=== PATIENT | female | born 1965 | race Caucasian/White ===

== ENCOUNTER 2019-04-10 12:43 | Emergency (ER) | payer OTHER, MEDICAID, SELFPAY ==
[2019-04-10 12:51] VITALS: BP 123/74; PULSE 79; RESP 16; TEMP 36.5; O2SAT 97; BMI 45.1
--- NOTE | 2019-04-10 13:01 | DI.RAD.S_ITS ---
PROCEDURE: XR CHEST 1V INDICATIONS: chest pain TECHNIQUE: One view of the chest was acquired. COMPARISON: [facility], , CHEST 2 VIEW, 01/12/2016, 22:17. FINDINGS: Surgical changes and devices: None. Lungs and pleura: Lungs are clear. No pleural effusions or pneumothorax. Mediastinum: Mediastinal contours appear normal. Heart size is mildly enlarged. Bones and chest wall: No suspicious bony lesions. Overlying soft tissues appear unremarkable. IMPRESSION: Mild cardiomegaly. No acute pulmonary findings. Dictated by: Ramya Chadwick M.D. on 04/10/2019 at 14:17 Approved by: Ramya Chadwick M.D. on 04/10/2019 at 14:18
[2019-04-10 13:19] VITALS: BP 103/78; PULSE 80; RESP 16; O2SAT 100
[2019-04-10 13:20] LABS: Add Manual Diff / Slide Review NO; Basophils Absolute Auto 0 /uL (0-100); Basophils Percent Auto 0.8 % (0-2); Eosinophils Absolute Auto 100 /uL (0-450); Hematocrit 40.5 % (36-46); Hemoglobin 13.7 g/dL (12.0-16.0); Lymphocytes Absolute Auto 1800 /uL (1100-4500); Lymphocytes Percent Auto 34.9 % (25-40); Mean Corpuscular HGB Conc 33.8 % (30-36); Mean Corpuscular Hemoglobin 31.8 PG (26-34); Monocytes Absolute Auto 400 /uL (0-900); Monocytes Percent Auto 6.8 % (3-14); Neutrophils Absolute Auto 2900 /uL (1500-7000); Neutrophils Percent Auto 55.5 % (50-75); Platelet Count 205 X10^3/uL (150-400); Red Blood Cell Count 4.31 X10^6/uL (4.0-5.2); Red Cell Distribution Width 13.3 % (11.6-14.8); White Blood Cell Count 5.2 X10^3/uL (4.5-11.0)
[2019-04-10 13:21] LABS: Prothrombin Time 11.3 SECONDS (10.1-12.7)
[2019-04-10 13:24] LABS: PTT Partial Thromboplastin Tim 32 SECONDS (26.4-36.2)
[2019-04-10 13:26] LABS: Alanine Aminotransferase 16 IU/L (<35); Albumin 4.2 g/dL (3.5-5.0); Albumin Globulin Ratio 1.5 (1.0-2.8); Alkaline Phosphatase 71 U/L (38-126); Aspartate Aminotransferase 27 IU/L (14-36); BUN Creatinine Ratio 38.3 (6-22); Bilirubin Total 0.4 mg/dL (0.2-1.3); Blood Urea Nitrogen 23 mg/dL (7-17); Calcium 9.4 mg/dL (8.4-10.2); Carbon Dioxide 28 mmol/L (22-32); Chloride 108 mmol/L (98-107); Creatine Kinase 232 U/L (30-135); Estimated Glomerular Filt Rate > 60.0 mL/min (>60); Globulin 2.8 g/dL (1.7-4.1); Glucose 111 mg/dL (70-100); HEMOLYSIS < 15 (0-50); Lipase 72 U/L (23-300); Potassium 3.8 mmol/L (3.4-5.1); Sodium 143 mmol/L (137-145)
--- NOTE | 2019-04-10 13:31 | ED.CHESTPAIN ---
HPI - Chest Pain General Chief Complaint: Chest Pain Stated Complaint: Chest pain and pressure Time Seen by Provider: 04/10/19 13:29 Source: patient Mode of arrival: Wheelchair Limitations: no limitations History of Present Illness HPI narrative: Patient is a 54-year-old overweight female with history of fibromyalgia and COPD presenting with sudden onset left-sided chest pain. It radiates to her left shoulder it has let up only little bit since she has been in the emergency department. She feels like there is a knot on the top of her chest. It is almost reproducible but she says feels deep. She move her left arm without any difficulty she denies any pain will breathing. She has never experienced anything like this in the past. She does typically get around by a walker Related Data Home Medications Medication Instructions Recorded Confirmed albuterol sulfate [Proventil HFA] 2 puff INH PRN #8.5 gm 12/25/12 beclomethasone dipropionate [Qvar] 1 puff INH BID #1 inh 12/25/12 LIDOCAINE (LIDODERM) 1 ea TOPICAL QDAY #0 patch 01/12/16 budesonide-formoterol [Symbicort] 1 inh INH BID #1 inh 01/12/16 cyclobenzaprine 5 mg PO QDAY PRN #0 01/12/16 hydrocodone-acetaminophen [Vicodin] 1 tab PO Q4HP PRN #0 tab 01/12/16 ketoconazole 1 jackie TOPICAL #15 gm 01/12/16 methenamine-sodium salicylate 1 tab PO #0 tab 01/12/16 [Cystex Plus (methenamine-cash)] nystatin [Nyamyc] 100,000 u TP #15 gm 01/12/16 ondansetron HCl [Zofran] 8 mg PO TID PRN #0 01/12/16 sucralfate [Carafate] 1 gm PO ACHS #0 ml 01/12/16 Previous Rx's Medication Instructions Recorded hydrochlorothiazide 25 mg PO QDAY PRN #30 tab 01/12/16 Allergies Allergy/AdvReac Type Severity Reaction Status Date / Time acetaminophen [From PERCOCET] Allergy Unknown Unverified 08/19/17 12:09 ciprofloxacin [CIPROFLOXACIN] Allergy Unknown Unverified 08/19/17 12:09 clindamycin [CLINDAMYCIN] Allergy Unknown Unverified 08/19/17 12:09 dexamethasone [DEXAMETHASONE] Allergy Unknown Unverified 08/19/17 12:09 diphenhydramine Allergy Unknown Unverified 08/19/17 12:09 [DIPHENHYDRAMINE] erythromycin base Allergy Unknown Unverified 08/19/17 12:09 [ERYTHROMYCIN BASE] fluticasone [From FLONASE] Allergy Unknown Unverified 08/19/17 12:09 gabapentin [GABAPENTIN] Allergy Unknown Unverified 08/19/17 12:09 hydrocodone [HYDROCODONE] Allergy Unknown Unverified 08/19/17 12:09 metronidazole [METRONIDAZOLE] Allergy Unknown Unverified 08/19/17 12:09 nabumetone [NABUMETONE] Allergy Unknown Unverified 08/19/17 12:09 oxycodone [From PERCOCET] Allergy Unknown Unverified 08/19/17 12:09 Penicillins [PENICILLINS] Allergy Unknown Unverified 08/19/17 12:09 prednisone [PREDNISONE] Allergy Unknown Unverified 08/19/17 12:09 Sulfa (Sulfonamide Allergy Unknown Unverified 08/19/17 12:09 Antibiotics) [SULFA (SULFONAMIDE ANTIBIOTICS)] tramadol [From ULTRAM] Allergy Unknown Unverified 08/19/17 12:09 BEE STINGS Allergy Severe Uncoded 08/19/17 12:09 CILLIAN Allergy Intermediate HIVES Uncoded 08/19/17 12:09 Review of Systems Review of Systems Narrative: GENERAL: Denies chills, fatigue, malaise, fever, sweats, travel HEENT: Denies sinus pain, ear pain, sore throat, difficulty swallowing, neck pain RESPIRATORY: Denies dyspnea, cough, wheezing, hemoptysis, sputum. CARDIOVASCULAR: See HPI GASTROINTESTINAL: Denies nausea, vomiting, abdominal pain, diarrhea, constipation, melena. : Denies dysuria, frequency, incontinence, hematuria, urinary retention, flank pain. MUSCULOSKELETAL: Denies weakness, joint pain, or bony pain SKIN: No rash, no erythema, no pruritus NEUROLOGIC: Denies weakness, dizziness, headache, numbness, change in speech, confusion PSYCHIATRIC: No concerning psychosocial issues. 12 point review of systems is negative except for those stated above and HPI Patient History Medical History Arthritis (Acute) COPD (chronic obstructive pulmonary disease) (Acute) Fibromyalgia (Acute) tobacco type: cigarettes Substance Use Type: does not use Exam Initial Vital Signs Initial Vital Signs: Vital Signs Temperature 97.7 F 04/10/19 12:51 Pulse Rate 79 04/10/19 12:51 Respiratory Rate 16 04/10/19 12:51 Blood Pressure 123/74 04/10/19 12:51 Pulse Oximetry 97 04/10/19 12:51 GENERAL: Well-appearing, well-nourished and in no acute distress. HEENT: Head atraumatic,EOMI, pupils reactive, face symmetric, moist mucous membranes CARDIOVASCULAR: Regular rate and rhythm without murmurs, rubs or gallops. Pain over the left upper pectoral area and breast almost reproducible to palpation not reproduced with are movement RESPIRATORY: Breath sounds equal bilaterally, no wheezes rales or rhonchi. ABDOMEN: Soft, nontender. Normoactive bowel sounds all 4 quadrants. No guarding or rebound. EXTREMITIES: Normal range of motion, no clubbing or edema. Neurovascularly intact NEUROLOGICAL: Alert and oriented x4.Normal gait and speech. Cranial nerves II through XII grossly intact. SKIN: Warm, dry, no laceration, no petechiae, no rashes or lesions. Course Orders Ordered: ED Orders 04/10/19 13:01 XR chest 1V Stat EKG-12 Lead Stat 04/10/19 13:11 B Type Natriuretic Peptide Stat Complete Blood Count AUTO DIFF Stat Comprehensive Metabolic Panel Stat Lipase Stat Partial Thromboplastin Time Stat Prothrombin Time INR Stat Troponin & CK Cardiac Panel Stat 04/10/19 16:23 Trop I [Troponin I] Stat Vital Signs Vital signs: Vital Signs - 8 hr 04/10/19 12:51 04/10/19 13:19 04/10/19 14:23 Temperature 97.7 F Pulse Rate 79 80 89 Respiratory Rate 16 16 13 Blood Pressure 123/74 Blood Pressure [Right Arm] 103/78 107/64 Pulse Oximetry 97 100 96 04/10/19 15:38 04/10/19 17:15 Temperature Pulse Rate 73 77 Respiratory Rate 18 16 Blood Pressure 116/80 Blood Pressure [Right Arm] 110/57 L Pulse Oximetry 100 97 MDM - Chest Pain Lab Data Attestation: I reviewed the patient's lab results. Result diagrams: 04/10/19 13:11 04/10/19 13:11 Labs: Lab Results 04/10/19 04/10/19 04/10/19 Range/Units 13:11 13:11 13:11 WBC 5.2 (4.5-11.0) X10^3/uL RBC 4.31 (4.0-5.2) X10^6/uL Hgb 13.7 (12.0-16.0) g/dL Hct 40.5 (36-46) % MCV 94.0 (80-100) fL MCH 31.8 (26-34) PG MCHC 33.8 (30-36) % RDW 13.3 (11.6-14.8) % Plt Count 205 (150-400) X10^3/uL Neut % (Auto) 55.5 (50-75) % Lymph % (Auto) 34.9 (25-40) % Shasta % (Auto) 6.8 (3-14) % Eos % (Auto) 2.0 (2-4) % Baso % (Auto) 0.8 (0-2) % Neut # (Auto) 2900 (2961-7309) /uL Lymph # (Auto) 1800 (2034-6834) /uL Shasta # (Auto) 400 (0-900) /uL Eos # (Auto) 100 (0-450) /uL Baso # (Auto) 0 (0-100) /uL PT 11.3 (10.1-12.7) SECONDS INR 1.0 (0.9-1.3) APTT 32 (26.4-36.2) SECONDS Sodium 143 (137-145) mmol/L Potassium 3.8 (3.4-5.1) mmol/L Chloride 108 H (98-107) mmol/L Carbon Dioxide 28 (22-32) mmol/L BUN 23 H (7-17) mg/dL Creatinine 0.60 (0.52-1.04) mg/dL Estimated GFR > 60.0 (>60) mL/min BUN/Creatinine Ratio 38.3 H (6-22) Glucose 111 H (70-100) mg/dL Calcium 9.4 (8.4-10.2) mg/dL Total Bilirubin 0.4 (0.2-1.3) mg/dL AST 27 (14-36) IU/L ALT 16 (<35) IU/L Alkaline Phosphatase 71 (38-126) U/L Total Creatine Kinase 232 H (30-135) U/L CK-MB (CK-2) 3.32 H (<2.37) ng/mL CK-MB (CK-2) Rel Index 1.4 L (1.5-5.0) % Troponin I < 0.012 (0.01-0.034) ng/mL B-Natriuretic Peptide (<100) Total Protein 7.0 (6.3-8.2) g/dL Albumin 4.2 (3.5-5.0) g/dL Globulin 2.8 (1.7-4.1) g/dL Albumin/Globulin Ratio 1.5 (1.0-2.8) Lipase 72 (23-300) U/L 04/10/19 04/10/19 Range/Units 13:11 16:23 WBC (4.5-11.0) X10^3/uL RBC (4.0-5.2) X10^6/uL Hgb (12.0-16.0) g/dL Hct (36-46) % MCV (80-100) fL MCH (26-34) PG MCHC (30-36) % RDW (11.6-14.8) % Plt Count (150-400) X10^3/uL Neut % (Auto) (50-75) % Lymph % (Auto) (25-40) % Shasta % (Auto) (3-14) % Eos % (Auto) (2-4) % Baso % (Auto) (0-2) % Neut # (Auto) (0736-5291) /uL Lymph # (Auto) (9069-1424) /uL Shasta # (Auto) (0-900) /uL Eos # (Auto) (0-450) /uL Baso # (Auto) (0-100) /uL PT (10.1-12.7) SECONDS INR (0.9-1.3) APTT (26.4-36.2) SECONDS Sodium (137-145) mmol/L Potassium (3.4-5.1) mmol/L Chloride (98-107) mmol/L Carbon Dioxide (22-32) mmol/L BUN (7-17) mg/dL Creatinine (0.52-1.04) mg/dL Estimated GFR (>60) mL/min BUN/Creatinine Ratio (6-22) Glucose (70-100) mg/dL Calcium (8.4-10.2) mg/dL Total Bilirubin (0.2-1.3) mg/dL AST (14-36) IU/L ALT (<35) IU/L Alkaline Phosphatase (38-126) U/L Total Creatine Kinase (30-135) U/L CK-MB (CK-2) (<2.37) ng/mL CK-MB (CK-2) Rel Index (1.5-5.0) % Troponin I < 0.012 (0.01-0.034) ng/mL B-Natriuretic Peptide < 100 (<100) Total Protein (6.3-8.2) g/dL Albumin (3.5-5.0) g/dL Globulin (1.7-4.1) g/dL Albumin/Globulin Ratio (1.0-2.8) Lipase (23-300) U/L ECG Data Attestation: I personally reviewed and interpreted this ECG as follows: Prior ECG tracings: available for review Interpretation: Normal sinus rhythm rate 85 WV 182 QRS [address] elevation no depression no t wave inversion MDM Narrative Medical decision making narrative: The patient has multiple allergies she is able to take naproxen but is allergic to other NSAIDs she can't have aspirin is. She continues to have some mild chest discomfort while in the emergency department. I discussed with her admission for chest pain rule out and cardiac evaluation including a stress test. She adamantly refuses a stress test including nuclear stress test. She is not capable of doing treadmill due to her physical limitations she said that she had a nuclear stress test 1 time is and had the worst reaction adamantly refuses to have another 1. I have explained to her that I cannot rule out any sort of heart issue without any kind of testing is and that she may have a heart attack and . She continues to refuse any sort of testing. At this time if she is refusing testing no need for admission. She has a repeat troponin which is negative. She feels ready and able to go home. I have also discussed the plan with patient's was agreeable to take her home. I discussed all findings with the patient and , Education has been performed regarding treatment plan, diagnosis, warning signs and symptoms and all concerns have been addressed. Verbally agree with and understood all of the above. Discharge Plan Departure Patient Disposition: Home Clinical Impression: Atypical chest pain Discharge Date/Time: 04/10/19 17:16 Instructions: DI for Atypical Chest Pain Activity Restrictions/Additional Instructions: *You have been diagnosed with atypical chest pain *What to do: It was recommended that he stay in the hospital today to have a stress test however he refused to have a nuclear stress test *Continue to take medications as directed *Follow up with your primary care provider in 2-3 days *Return to ER if you should have increasing chest pain shortness of breath, or any new, worsening or concerning symptoms Prescriptions: No Action albuterol sulfate [Proventil HFA] 90 MCG/PUFF HFA aerosol inhaler 2 puff INH PRN Qty: 8.5 RF: 0 beclomethasone dipropionate [Qvar] 40 MCG/PUFF aerosol 1 puff INH BID Qty: 1 RF: 0 budesonide-formoterol [Symbicort] 160 MCG/4.5 MCG HFA aerosol inhaler 1 inh INH BID Qty: 1 RF: 0 nystatin [Nyamyc] 15 GM powder 100,000 u TP Qty: 15 RF: 0 ketoconazole 2 % cream 1 jackie Topical Qty: 15 RF: 0 methenamine-sodium salicylate [Cystex Plus (methenamine-cash)] 162 MG/162.5 MG tablet 1 tab PO Qty: 0 RF: 0 LIDOCAINE (LIDODERM) 1 ea Topical QDAY Qty: 0 RF: 0 ondansetron HCl [Zofran] 8 MG tablet 8 mg PO TID PRNQty: 0 RF: 0 hydrocodone-acetaminophen [Vicodin] 5 MG/300 MG tablet 1 tab PO Q4HP PRNQty: 0 RF: 0 sucralfate [Carafate] 1 GM/10 ML suspension 1 gm PO ACHS Qty: 0 RF: 0 cyclobenzaprine 5 MG tablet 5 mg PO QDAY PRNQty: 0 RF: 0 hydrochlorothiazide 25 MG tablet 25 mg PO QDAY PRNQty: 30 RF: 0 Referrals: Mariya Casanova PA-C [Primary Care Provider] -
[2019-04-10 13:38] LABS: Troponin I < 0.012 ng/mL (0.01-0.034)
[2019-04-10 13:41] LABS: CKMB % Relative Index 1.4 % (1.5-5.0); Creatine Kinase MB 3.32 ng/mL (<2.37)
[2019-04-10 14:07] LABS: B Type Natriuretic Peptide < 100 (<100)
[2019-04-10 14:23] VITALS: BP 107/64; PULSE 89; RESP 13; O2SAT 96
[2019-04-10 15:38] VITALS: BP 110/57; PULSE 73; RESP 18; O2SAT 100
[2019-04-10 16:58] LABS: Troponin I < 0.012 ng/mL (0.01-0.034)
[2019-04-10 17:15] VITALS: BP 116/80; PULSE 77; RESP 16; O2SAT 97
== END 2019-04-10 17:16 | disposition home or self-care (01) ==
PROVIDERS: Emergency Provider Emergency Medicine; PCP Physician Assistant Medical
DX: R07.89 Other chest pain (principal); J44.9 Chronic obstructive pulmonary disease, unspecified; M79.7 Fibromyalgia
CPT/HCPCS: 36415; 71045; 80053; 82550; 82553; 83690; 83880; 84484; 85025; 85610; 85730; 93005; 99283; 99285

== ENCOUNTER → 2019-06-08 09:10 | Outpatient (CLI) | payer OTHER, MEDICAID, SELFPAY ==
--- NOTE | 2019-06-08 | DI.ECHO.S_ITS ---
[facility] +---------+ : : [address] [place] : : : : [id number] : : : : Phone: [phone]+ Echocardiogram Report + + :Name: VINOD LEARY Study Date: 06/08/2019 Height: 67 in : :[facility] Weight: 275 lb : : Gender: Female BSA: 2.3 m2 : :: 1965 Age: 54 yrs BP: 110/70 mmHg: :Reason For Study: EDEMA : : Performed By: Jann Tran : :Referring: MARLENE BRIGHT : + + Interpretation Summary The left ventricle is normal in size. The ejection fraction is estimated to be 60-65%. The right ventricle is normal in size and function. No significant valvular pathology seen. Procedure: A two-dimensional transthoracic echocardiogram with color flow and Doppler was performed. The study quality was technically adequate. There is no prior echocardiogram noted for this patient. The patient was in normal sinus rhythm during the exam. Left Ventricle: The left ventricle is normal in size. There is mild concentric left ventricular hypertrophy. There is no thrombus. Left ventricular systolic function is normal. The ejection fraction is estimated to be 60-65%. There are no focal wall motion abnormalities. Diastolic parameters suggest a relaxation abnormality of the left ventricle, consistent with probable normal filling pressures. Right Ventricle: The right ventricle is normal in size and function. Atria: The left atrium is borderline dilated. Right atrial size is normal. The interatrial septum is intact with no evidence for an atrial septal defect. Mitral Valve: The mitral valve leaflets appear borderline thickened, but open well. There is trace mitral regurgitation. Aortic Valve: The aortic valve is trileaflet. The aortic valve opens well. There is no aortic valve stenosis. No aortic regurgitation is present. Tricuspid Valve: The tricuspid valve is normal in structure and function. No tricuspid regurgitation. Pulmonic Valve: The pulmonic valve is normal in structure and function. There is trace pulmonic regurgitation. Great Vessels: The aortic root is normal size. The dimensions of the ascending aorta are normal. The pulmonary artery is normal size. The inferior vena cava was not well visualized. Pericardium/ Pleura There is no pericardial effusion. There is no pleural effusion. MMode/2D Measurements & Calculations LVIDd: 3.7 cm LVOT diam: 2.4 cm LVIDs: 2.5 cm Ao root diam: 3.4 cm FS: 32.0 % Ao Arch Diam (Prox Trans): 2.6 cm EPSS: 0.85 cm IVSd: 1.2 cm LVPWd: 1.3 cm LV vela. diameter/BSA (cm/m^2): 1.6 LV sys. diameter/BSA (cm/m^2): 1.1 LA A2 area: 23.9 cm2 RA long axis: 5.0 cm LA A4 area: 21.9 cm2 RA area: 16.7 cm2 LA length (vol): 5.8 cm RA vol: 47.4 ml LA vol: 76.4 ml RA : 20.5 ml/m2 LA vol index: 33.0 ml/m2 TAPSE: 2.5 cm Doppler Measurements & Calculations Ao V2 max: 93.1 cm/sec LVOT Max Tarik: 97.2 cm/sec Ao V2 mean: 68.6 cm/sec LV V1 max P.8 mmHg Ao max P.5 mmHg LV V1 VTI: 22.0 cm Ao mean P.1 mmHg RUSLAN(I,D): 4.9 cm2 Ao V2 VTI: 19.8 cm RUSLAN(V,D): 4.6 cm2 sev ratio: 1.1 RUSLAN indexed to BSA (cm^2/m^2): 2.1 MV E max tarik: 43.3 cm/sec PA V2 max: 66.8 cm/sec MV A max tarik: 67.1 cm/sec PA V2 mean: 43.4 cm/sec MV E/A: 0.65 PA mean P.89 mmHg Med Peak E' Tarik: 6.4 cm/sec PA Accel Time: 0.13 sec E/E' med: 6.8 Lat Peak E' Tarik: 7.3 cm/sec E/E' lat: 6.0 E/e' average: 6.4 MV dec time: 0.12 sec SV(LVOT): 97.4 ml Reading Physician:08:23 PM
== END ==
PROVIDERS: Family Provider Physician Assistant Medical; PCP Physician Assistant Medical; Visit Provider Physician Assistant
DX: R60.9 Edema, unspecified (principal); R07.89 Other chest pain
CPT/HCPCS: 93306

== ENCOUNTER → 2019-07-20 17:51 | Outpatient (CLI) | payer OTHER, MEDICAID, SELFPAY ==
--- NOTE | 2019-07-20 | DI.MRI.S_ITS ---
PROCEDURE: MR LUMBAR SPINE WO CON INDICATIONS: OTHER INTERVERTEBRAL DISC DEGENERATION TECHNIQUE: Noncontrast sagittal T1 spin echo and T2 fast echo, sagittal STIR, axial T1 and T2 fast spin echo through the lumbar spine. In cases with scoliosis, additional coronal T2 fast spin echo may be performed. COMPARISON: [facility], , SPINE LUMB 2 OR 3VW, 02/07/2014, 9:48. FINDINGS: Image quality: Partially degraded by motion artifact. Alignment and Curvature: 5 lumbar type vertebral bodies are present by plain film. There is mild, grade 1 anterolisthesis of L3 on L4. Bone Marrow: Marrow is of normal overall signal. No acute vertebral body compression fractures. Moderate reactive signal within the endplates adjacent to the L4-L5 and L5-S1 intervertebral discs. Spinal Cord: Conus medullaris terminates at the mid L2 level. Visualized cord demonstrates normal signal and size. Paraspinous Soft Tissues: No paravertebral masses. L1-L2: Mild disc height loss. No significant canal, nor foraminal stenosis. L2-L3: Mild disc desiccation and diffuse disc bulge with small superimposed broad-based left posterior lateral protrusion. Mild bilateral facet hypertrophy. Mild epidural lipomatosis. Mild canal stenosis. Mild left foraminal stenosis. No right foraminal stenosis. L3-L4: Moderate disc height loss. Moderate facet hypertrophy. Mild ligamentum flavum hypertrophy and epidural lipomatosis. Mild canal stenosis. Mild right foraminal stenosis. No left foramen stenosis. L4-L5: Moderate disc height loss and desiccation. Mild diffuse disc bulge. Mild facet and ligamentum hypertrophy. Mild epidural lipomatosis. Moderate canal stenosis. Moderate bilateral foraminal stenosis. L5-S1: Severe disc height loss and desiccation. Mild diffuse disc bulge with superimposed small central disc extrusion which extends inferiorly within the anterior epidural space to the mid S1 level. Mild canal stenosis. Moderate left greater than right subarticular foraminal stenosis. IMPRESSION: 1. Multilevel degenerative disc and facet disease, as well as ligamentum flavum hypertrophy and epidural lipomatosis. 2. Multilevel canal stenoses, worst at L4-L5, where there is moderate canal stenosis. 3. Multilevel foraminal stenoses, worst at L4-L5 and L5-S1 where there are moderate foraminal stenoses present. Dictated by: Nighat Dennis M.D. on 07/21/2019 at 8:52 Approved by: Nighat Dennis M.D. on 07/21/2019 at 9:09
== END ==
PROVIDERS: Family Provider Physician Assistant Medical; PCP Physician Assistant Medical; Referring Provider Physician Assistant Medical; Visit Provider Physician Assistant Medical
DX: M51.36 Other intervertebral disc degeneration, lumbar region (principal); M51.37 Other intervertebral disc degeneration, lumbosacral region; M48.061 Spinal stenosis, lumbar region without neurogenic claudication; M48.07 Spinal stenosis, lumbosacral region; E88.2 Lipomatosis, not elsewhere classified
CPT/HCPCS: 72148

== ENCOUNTER 2019-07-21 14:47 | Emergency (ER) | payer OTHER, MEDICAID, SELFPAY ==
[2019-07-21 14:49] VITALS: BP 124/76; PULSE 107; RESP 18; TEMP 36.4; O2SAT 97
--- NOTE | 2019-07-21 14:55 | DI.RAD.S_ITS ---
PROCEDURE: XR CHEST 1V INDICATIONS: chest pain TECHNIQUE: One view of the chest was acquired. COMPARISON: [facility], CR, XR CHEST 1V, 04/10/2019, 14:46. FINDINGS: Surgical changes and devices: None. Lungs and pleura: Increase bronchovascular markings in bilateral hilar region are seen with mild bronchial wall thickening. No focal infiltrate. No pleural effusions or pneumothorax. Mediastinum: Mediastinal contours appear normal. Heart size is normal. Bones and chest wall: No suspicious bony lesions. Overlying soft tissues appear unremarkable. IMPRESSION: Suggestion of mild reactive airway disease such as viral pneumonia or bronchitis. No focal infiltrate. Dictated by: Gary Mccormick M.D. on 07/21/2019 at 15:43 Approved by: Gary Mccormick M.D. on 07/21/2019 at 15:44
--- NOTE | 2019-07-21 15:19 | ED_ITS ---
HPI - Chest Pain General Chief Complaint: Chest Pain Stated Complaint: thinks had a heart attack last night Time Seen by Provider: 07/21/19 15:18 Source: patient Mode of arrival: Ambulatory Limitations: no limitations History of Present Illness HPI narrative: CC: chest pain HPI: The patient is a 54-year-old female who primarily came into the emergency department because her doctor wanted her to be checked for heart attacks in she developed last night around 9:00 p.m. the sudden onset of severe left-sided chest pain that was aching excruciating sharp radiating straight through to her back. She passed out and does not remember anything until she woke up at 1:00 a.m. in the morning and had absolutely no chest pain. The patient states that earlier in the week she had a CT scan of her chest at [facility] which revealed that she had a small pulmonary embolism. She had multiple lab tests performed to rule out a clotting disorder. She was having low back pain and had an MRI before being started on her Eliquis. The patient developed the pain and discomfort after she started taking her Eliquis. Since 1:00 a.m. in the morning last night she has had no chest pain. She has had shortness of breath for the last 2 months prior to admission and she has a chronic smoker's cough. She has had some mild palpitations with dizziness and lightheadedness. She has chronic pain syndrome with fibromyalgia. She continues to smoke cigarettes but drinks alcohol rarely does not use any other drugs. She admits to history of COPD but has never had a myocardial infarction stroke kidney failure hypertension or diabetes mellitus. Patient denies any fever but has had intermittent chronic chills without sweats. She has a mild headache. She denies any abdominal pain nausea vomiting diarrhea change in bowel habits or any urinary symptoms. Related Data Home Medications Medication Instructions Recorded Confirmed albuterol sulfate [Proventil HFA] 2 puff INH PRN PRN #8.5 gm 12/25/12 07/21/19 ketoconazole 1 jackie TOPICAL DIRECTED #15 gm 01/12/16 07/21/19 nystatin [Nyamyc] 100,000 u TP BID #15 gm 01/12/16 07/21/19 Lactobac no.30-Bifidobact no.4 1 cap PO DAILY 07/21/19 07/21/19 [Ultimate Amanda Probiotic] apixaban [Eliquis] 10 mg PO [id number] 07/21/19 07/21/19 cranberry conc-ascorbic acid 2 cap PO BID 07/21/19 07/21/19 furosemide 20 mg PO BID 07/21/19 07/21/19 potassium chloride 10 meq PO DAILY 07/21/19 07/21/19 Allergies Allergy/AdvReac Type Severity Reaction Status Date / Time ciprofloxacin [CIPROFLOXACIN] Allergy Unknown Verified 07/21/19 14:54 clindamycin [CLINDAMYCIN] Allergy Unknown Verified 07/21/19 14:54 dexamethasone [DEXAMETHASONE] Allergy Unknown Verified 07/21/19 14:54 diphenhydramine Allergy Unknown Verified 07/21/19 14:54 [DIPHENHYDRAMINE] erythromycin base Allergy Unknown Verified 07/21/19 14:54 [ERYTHROMYCIN BASE] fluticasone [From FLONASE] Allergy Unknown Verified 07/21/19 14:54 gabapentin [GABAPENTIN] Allergy Unknown Verified 07/21/19 14:54 hydrocodone [HYDROCODONE] Allergy Unknown Verified 07/21/19 14:54 metronidazole [METRONIDAZOLE] Allergy Unknown Verified 07/21/19 14:54 nabumetone [NABUMETONE] Allergy Unknown Verified 07/21/19 14:54 oxycodone [From PERCOCET] Allergy Unknown Verified 07/21/19 14:54 Penicillins [PENICILLINS] Allergy Unknown Verified 07/21/19 14:54 prednisone [PREDNISONE] Allergy Unknown Verified 07/21/19 14:54 Sulfa (Sulfonamide Allergy Unknown Verified 07/21/19 14:54 Antibiotics) [SULFA (SULFONAMIDE ANTIBIOTICS)] tramadol [From ULTRAM] Allergy Unknown Verified 07/21/19 14:54 CILLIAN Allergy Intermediate HIVES Uncoded 08/19/17 12:09 BEE STINGS Allergy Unknown Uncoded 07/21/19 14:54 Review of Systems Review of Systems Narrative: Her review of systems were all negative except for those mentioned in the history of present illness. Patient History Medical History Arthritis (Acute) COPD (chronic obstructive pulmonary disease) (Acute) Fibromyalgia (Acute) Social History Smoking Status: Current every day smoker Smoking Status: Current every day smoker tobacco type: cigarettes Substance Use Type: does not use Exam Narrative Exam Narrative: PHYSICAL EXAM: CONSTITUTIONAL: Awake, Alert, Oriented, Coherent, Cooperative in NAD. Does not appear toxic or ill. The patient is jovial and laughing at times. HEAD: AT/NC EENT: PERRL, FROM of eyes, no discharge, . Oral mucosa is moist and pink, posterior pharynx is without erythema or exudate. NECK: Supple, no obvious JVD, Trachea is midline without stridor, no palpable LN . SPINE: No gross deformity, no palpable tenderness of the cervical, thoracic, lumbar or sacral spine. No CVA tenderness. THORAX: No deformity, retractions, chest wall tenderness, there is no chest wall tenderness to AP compression. LUNGS: Clear with symmetrical breath sounds without respiratory distress HEART: Normal heart tones, regular rhythm and rate without murmur. ABDOMEN: Soft, non-tender, normal bowel sounds without guarding, rebound, rigidity or palpable mass EXTREMITIES: No pitting edema, cyanosis, deformity or tenderness. The patient's left leg appears to be more swollen than the right leg. This may be secondary to venous insuffeciency. SKIN: No rash, bruising, petechiae or purpura. NEURO: Awake, alert, oriented, conversive, cranial nerves II-XII are symmetrical and normal, moves all 4 extremities and is ambulatory Initial Vital Signs Initial Vital Signs: Vital Signs Temperature 97.6 F 07/21/19 14:49 Pulse Rate 107 H 07/21/19 14:49 Respiratory Rate 18 07/21/19 14:49 Blood Pressure 124/76 07/21/19 14:49 Pulse Oximetry 97 07/21/19 14:49 Course Course Course Narrative: 1722: The patient's laboratory chemistries were evaluated and reviewed. WBC is 6.8. Electrolytes are normal, liver functions are normal and troponin is normal at less than 0.012. There is no need to perform a 2nd troponin since the patient's had no chest pain since 1:00 a.m. in the morning. If the patient had a myocardial infarction her troponin should be elevated. It is not elevated. Her chest pain is secondary to something else. She is not currently tachycardic nor hypoxic. The question is whether not the patient had a reaction to the Eliquis. The. The Eliquis was started because she had a sma ll pulmonary embolism. She will be discharged. At this time the patient's chest pain is secondary to unknown etiology. Did the patient have a syncopal attack secondary to vasovagal response secondary to her chest pain. Her chest pain has currently resolved. 1744: I explained to the patient that all of her cardiac test came back normal. The patient states that she has her medications. She states that last night she took her 1st dose of Eliquis and 20 minutes later developed the chest pain and then the syncopal attack which sounded like a vasovagal syncope. The patient will take her Eliquis now and we will observe and watch the patient, here in the emergency department to see if she has another similar reaction. The patient asked if she could do this because she does not trust any of her members of the family to know what to do if she has another reaction. 1840 the patient is up walking. She has some mild chest tightness which she always has. She has no chest pain like she had last night and is not dizzy or lightheaded. She is not any more short of breath than usual. She is having no wheezing. The patient will be discharged. She was advised that if she develops worsening chest pain, wheezing, shortness of breath, feeling faint or passing- out she needs to go to the nearest emergency department and be further evaluated. She was advised that until she adjust to taking the medications she should be sitting down and resting for 30-60 minutes after taking her Eliquis. If she develops a rash wheezing shortness of breath after taking the medications she needs to stop taking the medications and follow-up with her primary care physician. Orders Ordered: ED Orders 07/21/19 14:55 XR chest 1V Stat 07/21/19 15:04 EKG-12 Lead Stat 07/21/19 15:15 Complete Blood Count AUTO DIFF Stat Comprehensive Metabolic Panel Stat Lipase Stat Partial Thromboplastin Time Stat Prothrombin Time INR Stat Troponin & CK Cardiac Panel Stat Vital Signs Vital signs: Vital Signs - 8 hr 07/21/19 14:49 Temperature 97.6 F Pulse Rate 107 H Respiratory Rate 18 Blood Pressure 124/76 Pulse Oximetry 97 MDM - Chest Pain Lab Data Result diagrams: 07/21/19 15:15 07/21/19 15:15 Labs: Lab Results 07/21/19 07/21/19 07/21/19 Range/Units 15:15 15:15 15:15 WBC 6.8 (4.5-11.0) X10^3/uL RBC 4.42 (4.0-5.2) X10^6/uL Hgb 14.0 (12.0-16.0) g/dL Hct 41.4 (36-46) % MCV 93.5 (80-100) fL MCH 31.6 (26-34) PG MCHC 33.8 (30-36) % RDW 13.1 (11.6-14.8) % Plt Count 194 (150-400) X10^3/uL Neut % (Auto) 62.0 (50-75) % Lymph % (Auto) 28.0 (25-40) % [place] % (Auto) 6.9 (3-14) % Eos % (Auto) 2.4 (2-4) % Baso % (Auto) 0.7 (0-2) % Neut # (Auto) 4200 (9233-4697) /uL Lymph # (Auto) 1900 (1213-9565) /uL [place] # (Auto) 500 (0-900) /uL Eos # (Auto) 200 (0-450) /uL Baso # (Auto) 0 (0-100) /uL PT 13.5 H (10.1-12.7) SECONDS INR 1.2 (0.9-1.3) APTT 38 H D (26.4-36.2) SECONDS Sodium 140 (137-145) mmol/L Potassium 3.5 (3.4-5.1) mmol/L Chloride 105 (98-107) mmol/L Carbon Dioxide 27 (22-32) mmol/L BUN 17 (7-17) mg/dL Creatinine 0.69 (0.52-1.04) mg/dL Estimated GFR > 60.0 (>60) mL/min BUN/Creatinine Ratio 24.6 H (6-22) Glucose 124 H (70-100) mg/dL Calcium 9.8 (8.4-10.2) mg/dL Total Bilirubin 0.4 (0.2-1.3) mg/dL AST 29 (14-36) IU/L ALT 15 (<35) IU/L Alkaline Phosphatase 78 (38-126) U/L Total Creatine Kinase 242 H (30-135) U/L CK-MB (CK-2) 2.14 (<2.37) ng/mL CK-MB (CK-2) Rel Index 0.9 L (1.5-5.0) % Troponin I < 0.012 (0.01-0.034) ng/mL Total Protein 7.8 (6.3-8.2) g/dL Albumin 4.6 (3.5-5.0) g/dL Globulin 3.2 (1.7-4.1) g/dL Albumin/Globulin Ratio 1.4 (1.0-2.8) Lipase 69 (23-300) U/L ECG Data Attestation: I personally reviewed and interpreted this ECG as follows: Interpretation: The patient's EKG obtained on July 20 at 15:0 4:36 a.m. reveals a normal sinus rhythm with a ventricular rate of 97. The intervals appear to be normal. [place] is normal. The patient has left ventricular hypertrophy by voltage. There are small R waves in V1 V2 and a questionable QS wave in V3. There are nonspecific ST segment changes. Otherwise it looks like the patient has a QS wave in V1 and V2. There is no other acute diagnostic ST segment changes. Discharge Plan Departure Patient Disposition: Home Clinical Impression: Atypical chest pain, Fibromyalgia Syncope Qualifiers: Syncope type: unspecified Qualified Code(s): R55 - Syncope and collapse COPD (chronic obstructive pulmonary disease) Qualifiers: COPD type: unspecified COPD Qualified Code(s): J44.9 - Chronic obstructive pulmonary disease, unspecified Discharge Date/Time: 07/21/19 18:56 Instructions: DI for Syncope in Adults (Fainting), Fibromyalgia, DI for Chronic Obstructive Pulmonary Disease, DI for Chest Pain Activity Restrictions/Additional Instructions: 1. Follow-up with your primary care physician. Call her office tomorrow. 2. If you develop chest pain and or fainting or passing-out you need to return to the emergency department. 3. Take your medications as prescribed by your primary care physician. 4. You can return to the emergency department at any time especially if you start developing worsening shortness of breath, palpitations with racing of your heart, fainting passing-out associated with chest pain. Prescriptions: No Action albuterol sulfate [Proventil HFA] 90 MCG/PUFF HFA aerosol inhaler 2 puff INH PRN PRN (Reason: Shortness Of Breath) Qty: 8.5 RF: 0 nystatin [Nyamyc] 15 GM powder 100,000 u TP BID Qty: 15 RF: 0 ketoconazole 2 % cream 1 jackie Topical DIRECTED Qty: 15 RF: 0 potassium chloride 10 mEq tablet extended release 10 meq PO DAILY RF: 0 furosemide 20 mg tablet 20 mg PO BID RF: 0 Eliquis 5 mg tablet 10 mg PO [id number] RF: 0 cranberry conc-ascorbic acid 4,200-20 mg Capsule 2 cap PO BID RF: 0 Ultimate Amanda Probiotic 30 billion cell Capsule,Delayed Release(Dr/Ec) 1 cap PO DAILY RF: 0 Referrals: Mariya Casanova PA-C [Primary Care Provider] -
--- NOTE | 2019-07-21 15:22 | PC.NURSE ---
pt c/o chest pain yesterday. pt states approx 20 after taking her eliquis last cole she started having chest pain. pt states pain at that time was 14/10. pt states she sat down and woke back up at 0100, at that time pain was gone. pt recently started eliquis for new PE.
[2019-07-21 15:23] LABS: Add Manual Diff / Slide Review NO; Basophils Absolute Auto 0 /uL (0-100); Basophils Percent Auto 0.7 % (0-2); Eosinophils Absolute Auto 200 /uL (0-450); Eosinophils Percent Auto 2.4 % (2-4); Hematocrit 41.4 % (36-46); Lymphocytes Absolute Auto 1900 /uL (1100-4500); Mean Corpuscular HGB Conc 33.8 % (30-36); Mean Corpuscular Hemoglobin 31.6 PG (26-34); Mean Corpuscular Volume 93.5 fL (80-100); Monocytes Absolute Auto 500 /uL (0-900); Monocytes Percent Auto 6.9 % (3-14); Neutrophils Absolute Auto 4200 /uL (1500-7000); Platelet Count 194 X10^3/uL (150-400); Red Blood Cell Count 4.42 X10^6/uL (4.0-5.2); Red Cell Distribution Width 13.1 % (11.6-14.8); White Blood Cell Count 6.8 X10^3/uL (4.5-11.0)
[2019-07-21 15:30] LABS: INR 1.2 (0.9-1.3); Prothrombin Time 13.5 SECONDS (10.1-12.7)
[2019-07-21 15:32] LABS: PTT Partial Thromboplastin Tim 38 SECONDS (26.4-36.2)
[2019-07-21 15:40] LABS: Alanine Aminotransferase 15 IU/L (<35); Albumin 4.6 g/dL (3.5-5.0); Albumin Globulin Ratio 1.4 (1.0-2.8); Alkaline Phosphatase 78 U/L (38-126); Aspartate Aminotransferase 29 IU/L (14-36); BUN Creatinine Ratio 24.6 (6-22); Bilirubin Total 0.4 mg/dL (0.2-1.3); Blood Urea Nitrogen 17 mg/dL (7-17); Calcium 9.8 mg/dL (8.4-10.2); Carbon Dioxide 27 mmol/L (22-32); Chloride 105 mmol/L (98-107); Creatine Kinase 242 U/L (30-135); Estimated Glomerular Filt Rate > 60.0 mL/min (>60); Globulin 3.2 g/dL (1.7-4.1); Glucose 124 mg/dL (70-100); HEMOLYSIS < 15 (0-50); Lipase 69 U/L (23-300); Potassium 3.5 mmol/L (3.4-5.1); Sodium 140 mmol/L (137-145); Total Protein 7.8 g/dL (6.3-8.2)
[2019-07-21 15:51] LABS: Troponin I < 0.012 ng/mL (0.01-0.034)
[2019-07-21 15:55] LABS: CKMB % Relative Index 0.9 % (1.5-5.0); Creatine Kinase MB 2.14 ng/mL (<2.37)
[2019-07-21 17:00] VITALS: BP 114/63; PULSE 91; RESP 16; O2SAT 95
[2019-07-21 18:10] VITALS: BP 109/53; PULSE 71; RESP 19; O2SAT 97
== END 2019-07-21 18:56 | disposition home or self-care (01) ==
PROVIDERS: Emergency Provider Emergency Medicine; Family Provider Physician Assistant Medical; PCP Physician Assistant Medical
DX: R07.89 Other chest pain (principal); M79.7 Fibromyalgia; R55 Syncope and collapse; J44.9 Chronic obstructive pulmonary disease, unspecified
CPT/HCPCS: 36415; 71045; 80053; 82550; 82553; 83690; 84484; 85025; 85610; 85730; 93005; 99284

== ENCOUNTER → 2019-08-23 15:01 | Outpatient (CLI) | payer OTHER, MEDICAID, SELFPAY ==
[2019-08-23 18:03] LABS: Cholesterol 168 mg/dL (140-199); HDL Cholesterol 50 mg/dL (40-60); LDL Cholesterol Calculated 97 mg/dL (<100); Triglycerides 104 mg/dL (35-150)
== END ==
PROVIDERS: Family Provider Physician Assistant Medical; PCP Physician Assistant Medical; Referring Provider Internal Medicine Cardiovascular Disease; Visit Provider Internal Medicine Cardiovascular Disease
DX: Z00.00 Encounter for general adult medical examination without abnormal findings (principal)
CPT/HCPCS: 36415; 80061